=== PATIENT | male | born 1985 | race Two or more races ===

== ENCOUNTER 2022-08-12 18:16 | Emergency (ER) | payer MEDICAID, OTHER ==
[~2022-08-12] VITALS: Ht 177.8 cm; Wt 80.0 kg
[2022-08-12 18:17] VITALS: BP 122/80
[2022-08-12 19:08] LABS: Basophils # (auto) 0.1 10 ^3/uL (0-0.2); Basophils % (auto) 1.2 % (0.0-2.0); Eosinophils # (auto) 0.4 10 ^3/uL (0-0.8); Eosinophils % (auto) 5.6 % (0.0-7.0); Hematocrit 45.8 % (41.0-53.0); Hemoglobin 15.9 g/dL (13.5-17.5); Lymphocytes # (auto) 2.1 10 ^3/uL (0.4-5.4); Lymphocytes % (auto) 33.2 % (10.0-50.0); Mean Corpuscular Hemoglobin 31.4 pg (28.0-32.0); Mean Corpuscular Hgb Conc. 34.8 g/dL (32.0-36.0); Mean Corpuscular Volume 90.5 fL (80.0-100.0); Monocytes # (auto) 0.4 10 ^3/uL (0-1.3); Monocytes % (auto) 6.8 % (0.0-12.0); Neutrophils # (auto) 3.4 10 ^3/uL (1.6-8.6); Neutrophils % (auto) 53.2 % (37.0-80.0); Nucleated Red Blood Cells % 0.9 %; Red Blood Cells 5.07 10^6/uL (4.5-5.90); Red Cell Distribution Width 12.9 % (11.8-14.3); White Blood Cell 6.3 10^3/uL (4.4-10.8)
[2022-08-12 19:57] LABS: Albumin 3.9 g/dL (3.4-5.0); Calcium 8.5 mg/dL (8.5-10.1)
[2022-08-12 19:59] LABS: BUN/Creatinine Ratio 12.5 (10.0-20.0)
[2022-08-12 20:02] LABS: Bilirubin, Total 0.3 mg/dL (0.2-1.0)
[2022-08-12] MEDS ORDERED: LIDOCAINE VISCOUS 2% 15ML UD PO ONE (22:00)
[2022-08-12] MEDS ORDERED: MAALOX PLUS or MAALOX 30 ML PO ONE (22:00)
[2022-08-12] MEDS ORDERED: OMEP-448 PO (23:39)
== END 2022-08-13 00:44 | disposition left against medical advice (07) ==
LOC: ER 18:16
DX: K29.70 Gastritis, unspecified, without bleeding (principal); R07.89 Other chest pain
CPT/HCPCS: 36415; 71045; 80053; 83880; 84484; 85025; 93005

== ENCOUNTER 2023-06-10 10:33 | Emergency (ER) | payer SELFPAY ==
[~2023-06-10] VITALS: Ht 177.8 cm; Wt 102.0 kg
[~2023-06-10 10:33] MED LIST: OMEP-448 PO
[2023-06-10 10:36] VITALS: BP 137/85; PULSE 85; RESP 16; O2SAT 96
[2023-06-10] MEDS ORDERED: METH4PAK PO (10:46)
== END 2023-06-10 13:35 | disposition home or self-care (01) ==
LOC: ER 10:33
DX: G51.0 Bell's palsy (principal); F15.90 Other stimulant use, unspecified, uncomplicated; Z79.899 Other long term (current) drug therapy
CPT/HCPCS: 70450

== ENCOUNTER 2023-06-20 08:50 | Emergency (ER) | payer MEDICAID ==
[~2023-06-20] VITALS: Ht 180.3 cm; Wt 102.5 kg
[~2023-06-20 08:50] MED LIST changes: +METH4PAK PO
[2023-06-20] MEDS ORDERED: ACYC1TAB3 PO (09:22)
[2023-06-20] MEDS ORDERED: AMOX875T3 PO (09:22)
[2023-06-20 09:34] VITALS: BP 138/82; PULSE 84; RESP 16; TEMP 97.5; O2SAT 97
== END 2023-06-20 09:35 | disposition home or self-care (01) ==
LOC: ER 08:50
DX: H66.92 Otitis media, unspecified, left ear (principal); G51.0 Bell's palsy; F12.10 Cannabis abuse, uncomplicated

== ENCOUNTER 2023-06-30 13:53 | Inpatient (IN) | payer MEDICAID ==
[~2023-06-30] VITALS: Ht 180.3 cm; Wt 103.0 kg
[~2023-06-30 13:53] MED LIST changes: +ACYC1TAB3 PO; +AMOX875T3 PO
[2023-06-30] MEDS: ASPirin 325 MG TAB PO ONE (14:20)
[2023-06-30 14:21] LABS: Basophils # (auto) 0.1 10 ^3/uL (0-0.2); Basophils % (auto) 0.8 % (0.0-2.0); Eosinophils # (auto) 0.3 10 ^3/uL (0-0.8); Eosinophils % (auto) 3.2 % (0.0-7.0); Hemoglobin 16.7 g/dL (13.5-17.5); Lymphocytes % (auto) 25.6 % (10.0-50.0); Mean Corpuscular Hemoglobin 30.8 pg (28.0-32.0); Mean Corpuscular Volume 90.6 fL (80.0-100.0); Monocytes # (auto) 0.5 10 ^3/uL (0-1.3); Monocytes % (auto) 6.9 % (0.0-12.0); Neutrophils % (auto) 63.5 % (37.0-80.0); Nucleated Red Blood Cells % 0.2 %; Red Blood Cells 5.41 10^6/uL (4.5-5.90); Red Cell Distribution Width 12.9 % (11.8-14.3); White Blood Cell 7.8 10^3/uL (4.4-10.8)
[2023-06-30] MEDS: NITROGLYCERIN 0.4 MG SL TAB SL ONE (14:21)
[2023-06-30 14:22] VITALS: PULSE 89; RESP 18; O2SAT 98
[2023-06-30 14:29] LABS: Chloride 103 mmol/L (98-107); Potassium 4.1 mmol/L (3.5-5.1); Sodium 138 mmol/L (136-145)
[2023-06-30 14:30] LABS: Anion Gap 6 (5-15); Carbon Dioxide 29 mmol/L (20-30)
[2023-06-30 14:31] LABS: Calcium 10.3 mg/dL (8.5-10.1)
[2023-06-30 14:35] LABS: Glucose 107 mg/dL (74-106)
[2023-06-30 14:36] LABS: BUN/Creatinine Ratio 6.8 (10.0-20.0); Blood Urea Nitrogen 8 mg/dL (9-23)
[2023-06-30 15:28] LABS: Urine Bacteria None Seen /hpf (None Seen)
[2023-06-30 15:43] LABS: Urine Blood Negative /uL (Negative); Urine Clarity Clear (Clear); Urine Color Light-Yellow (Yellow); Urine Protein, UAD Negative (Negative); Urine Urobilinogen Normal (Negative); Urine WBC <1 /hpf (0 - 3); Urine pH 6.5 (5.0-9.0)
[2023-06-30] MEDS ORDERED: ONDANSETRON HCL 4 MG/2 ML VIAL IV PRN (18:15)
[2023-06-30] MEDS ORDERED: ACETAMINOPHEN 325 MG TAB PO PRN (18:15)
[2023-06-30] MEDS ORDERED: MORPHINE SULFATE INJ 2 MG/ml SYRG IV PRN ×2 (18:15)
[2023-06-30] MEDS ORDERED: NITROGLYCERIN 0.4 MG SL TAB SL PRN (18:15)
[2023-06-30] MEDS ORDERED: HYDROcodone-ACET 5/325MG TAB PO PRN (18:15)
[2023-06-30] MEDS ORDERED: DOCUSATE SOD 100 MG CAP PO PRN (18:15)
[2023-06-30 20:00] VITALS: BP 115/76; PULSE 78; RESP 12; TEMP 98.7; O2SAT 97
[2023-06-30] MEDS ORDERED: ATORVASTATIN 20 MG TAB PO SCH (22:00)
[2023-07-01] MEDS ORDERED: ASPirin-EC 81 mg tab PO SCH (10:00)
== END 2023-06-30 21:00 | disposition left against medical advice (07) | DRG 198 ==
LOC: ER 13:53 → TELE 18:06
PROVIDERS: ADMIT Nurse Practitioner Family; ATTEND Nurse Practitioner Family
DX: R07.89 Other chest pain (principal); I24.9 Acute ischemic heart disease, unspecified; G51.0 Bell's palsy; Z53.29 Procedure and treatment not carried out because of patient's decision for other reasons; Z79.2 Long term (current) use of antibiotics; Z79.899 Other long term (current) drug therapy; Z80.9 Family history of malignant neoplasm, unspecified
CPT/HCPCS: 36415; 80048; 81001; 84484; 85025; 93005; G0378

== ENCOUNTER 2023-10-29 12:33 | Emergency (ER) | payer MEDICAID ==
[~2023-10-29] VITALS: Ht 177.8 cm; Wt 102.0 kg
[2023-10-29 13:08] LABS: Urine Bacteria None Seen /hpf (None Seen)
[2023-10-29 13:17] LABS: Urine Blood Negative /uL (Negative); Urine Clarity Clear (Clear); Urine Protein, UAD Negative (Negative); Urine Specific Gravity 1.008 (1.001-1.035); Urine Urobilinogen Normal (Negative); Urine WBC 1 /hpf (0 - 3); Urine pH 7.5 (5.0-9.0)
[2023-10-29 13:27] LABS: Urine Color Light-Yellow (Yellow)
[2023-10-29 15:39] LABS: Basophils # (auto) 0.1 10 ^3/uL (0-0.2); Basophils % (auto) 1.4 % (0.0-2.0); Eosinophils # (auto) 0.3 10 ^3/uL (0-0.8); Hematocrit 47.3 % (41.0-53.0); Hemoglobin 16.3 g/dL (13.5-17.5); Lymphocytes # (auto) 2.3 10 ^3/uL (0.4-5.4); Lymphocytes % (auto) 31.2 % (10.0-50.0); Mean Corpuscular Hemoglobin 31.5 pg (28.0-32.0); Mean Corpuscular Hgb Conc. 34.4 g/dL (32.0-36.0); Mean Corpuscular Volume 91.5 fL (80.0-100.0); Monocytes # (auto) 0.6 10 ^3/uL (0-1.3); Monocytes % (auto) 8.9 % (0.0-12.0); Neutrophils % (auto) 54.5 % (37.0-80.0); Platelet Count (auto) 324 10^3/uL (140-450); Red Blood Cells 5.17 10^6/uL (4.5-5.90); Red Cell Distribution Width 12.8 % (11.8-14.3); White Blood Cell 7.3 10^3/uL (4.4-10.8)
[2023-10-29 15:41] LABS: Nucleated Red Blood Cells % 4.8 %
[2023-10-29 15:52] LABS: Chloride 108 mmol/L (98-107); Sodium 140 mmol/L (136-145)
[2023-10-29 15:53] LABS: Anion Gap 4 (5-15); Calcium 9.7 mg/dL (8.7-10.4); Carbon Dioxide 28 mmol/L (20-30)
[2023-10-29 15:58] LABS: BUN/Creatinine Ratio 6.8 (10.0-20.0); Blood Urea Nitrogen 8 mg/dL (9-23); Glucose 96 mg/dL (74-106)
[2023-10-29] MEDS ORDERED: TRAM50TA2 PO (16:12)
[2023-10-29] MEDS: SODIUM CHLORIDE 0.9% 1,000 ML IVB ONE (16:13)
[2023-10-29] MEDS: KETOROLAC TROMETH 30 MG/ML 1ML VIAL IV ONE (16:20)
[2023-10-29 16:48] VITALS: BP 114/82; PULSE 60; RESP 17; TEMP 98; O2SAT 98
== END 2023-10-29 16:50 | disposition home or self-care (01) ==
LOC: ER 12:33
DX: M79.18 Myalgia, other site (principal); R10.9 Unspecified abdominal pain
CPT/HCPCS: 36415; 74176; 80048; 81001; 85025; 96361; 96374; 99285; J1885; J7030